=== PATIENT | female | born 1935 | race Caucasian/White ===

== ENCOUNTER 2024-01-04 02:45 | Emergency (ER) | payer OTHER, MEDICAID ==
[~2024-01-04] VITALS: Ht 162.6 cm; Wt 67.0 kg
[~2024-01-04 02:45] MED LIST: IBUP-2029 PO; METF500T
[2024-01-04 02:48] VITALS: O2SAT 97
[2024-01-04 04:04] LABS: BASOPHILS % 0.4 % (0.0-2.0); EOSINOPHILS % 0.6 % (0.0-5.0); HEMATOCRIT. 38.4 % (36.0-48.0); MEAN CORPUSCULAR HEMOGLOBIN 30.7 pg (28.0-32.0); MEAN CORPUSCULAR HGB CONC 33.9 g/dL (31.0-37.0); MEAN CORPUSCULAR VOLUME 90.6 fL (81.0-99.0); MEAN PLATELET VOLUME 7.7 fl (7.4-10.4); MONOCYTES % 6.9 % (2.0-8.0); NEUTROPHILS % 70.1 % (40.0-76.0); PLATELET 285 x1000/uL (130-400); RED BLOOD CELL COUNT 4.24 mill/uL (4.2-5.4); RED CELL DISTRIBUTION WIDTH 14.1 % (11.6-14.6); WHITE BLOOD COUNT 8.7 x1000/uL (4.5-11.0)
[2024-01-04 04:12] LABS: POTASSIUM 5.7 mEq/L (3.5-5.1)
[2024-01-04 04:14] LABS: CALCIUM 9.8 mg/dL (8.7-10.4)
[2024-01-04 04:18] LABS: CREATININE 1.1 mg/dL (0.6-1.0)
[2024-01-04 05:03] LABS: CLARITY URINE CLEAR (CLEAR); COLOR URINE YELLOW (YELLOW); GLUCOSE URINE NEGATIVE (NEGATIVE); KETONES URINE NEGATIVE (NEGATIVE); LEUKOCYTE ESTERASE URINE NEGATIVE (NEGATIVE); NITRITE URINE NEGATIVE (NEGATIVE); OCCULT BLOOD URINE NEGATIVE (NEGATIVE); PROTEIN URINE 2+ (NEGATIVE); UROBILINOGEN URINE 0.2 E.U./dL (0.2-1.0)
[2024-01-04 05:44] LABS: POTASSIUM 4.3 mEq/L (3.5-5.1)
[2024-01-04 05:46] LABS: CALCIUM 9.8 mg/dL (8.7-10.4)
[2024-01-04 07:00] VITALS: BP 162/0; PULSE 80; RESP 18; TEMP 36.66960; O2SAT 97
[2024-01-04] MEDS: LOSARTAN 50 MG TABLET PO ONE (07:05)
[2024-01-04 07:32] LABS: BACTERIA URINE NONE SEEN; RBC URINE 0-2 /hpf (0-2); SQUAMOUS EPITHELIAL CELL URINE NONE SEEN /lpf (RARE/1+); WBC URINE 0-2 /hpf (0-2)
== END 2024-01-04 07:20 | disposition home or self-care (01) ==
LOC: ER 02:57
DX: E11.649 Type 2 diabetes mellitus with hypoglycemia without coma (principal); I10 Essential (primary) hypertension; R51.9 Headache, unspecified; Z00.00 Encounter for general adult medical examination without abnormal findings
CPT/HCPCS: 36415; 71045; 80048; 81003; 82962; 85025; 93005; 99285